=== PATIENT | female | born 1995 | race African-American/Black ===

== ENCOUNTER 2017-04-19 03:12 | Emergency (ER) | payer MEDICAID, OTHER ==
[2017-04-19] MEDS ORDERED: NORMAL SALINE 500 ML IV ONE (03:19)
[2017-04-19] MEDS ORDERED: KETOROLAC TROMETHAMINE INJ/PF 30 MG/1 ML SDV IV ONE (03:48)
[2017-04-19] MEDS ORDERED: NORMAL SALINE 1000 ML 1,000 ML IV ONE (03:48)
[2017-04-19] MEDS ORDERED: ONDANSETRON HCL INJ/PF 4 MG/2 ML SDV IV ONE (03:49)
[2017-04-19 04:38] LABS: ABSOLUTE EOSINOPHILS # (AUTO) 0.2 10^3/uL (0.0-0.6); ABSOLUTE MONOCYTES (AUTO) 0.5 10^3/uL (0.1-1.4); ABSOLUTE NEUT (AUTO) 3.2 10^3/uL (1.7-8.2); BASOPHILS % (AUTO) 0.6 % (0-2); EOSINOPHILS % (AUTO) 2.6 % (0-6); HEMATOCRIT 42.7 % (36.0-47.0); HEMOGLOBIN 15.4 g/dL (12.0-15.5); HGB HCT DIFFERENCE 3.5; LYMPHOCYTES % (AUTO) 34.1 % (13-45); MEAN CORPUSCULAR HEMOGLOBIN 32.8 pg (27.0-33.4); MEAN CORPUSCULAR HGB CONC 36.1 g/dL (32.0-36.0); MEAN CORPUSCULAR VOLUME 91 fl (80-97); MONOCYTES % (AUTO) 9.2 % (3-13); RED CELL DISTRIBUTION WIDTH 12.9 % (11.5-14.0); SEGMENTED NEUTROPHILS % (AUTO) 53.5 % (42-78)
[2017-04-19 04:53] LABS: ALANINE AMINOTRANSFERASE 29 U/L (9-52); ALBUMIN 4.3 g/dL (3.5-5.0); ALKALINE PHOSPHATASE 51 U/L (38-126); ANION GAP 10 (5-19); ASPARTATE AMINO TRANSFERASE 22 U/L (14-36); BILIRUBIN,DIRECT 0.3 mg/dL (0.0-0.4); BILIRUBIN,TOTAL 0.7 mg/dL (0.2-1.3); BLOOD UREA NITROGEN 11 mg/dL (7-20); CALCIUM 9.7 mg/dL (8.4-10.2); CARBON DIOXIDE 26 mmol/L (22-30); CHLORIDE 107 mmol/L (98-107); GLUCOSE 96 mg/dL (75-110); LIPASE 71.5 U/L (23-300); SODIUM 142.9 mmol/L (137-145); TOTAL PROTEIN 7.2 g/dL (6.3-8.2)
[2017-04-19 05:14] LABS: APPEARANCE,URINE CLOUDY; BILIRUBIN,URINE NEGATIVE (NEGATIVE); GLUCOSE, URINE NEGATIVE (NEGATIVE); KETONES,URINE NEGATIVE (NEGATIVE); LEUKOCYTE ESTERASE,URINE MODERATE (NEGATIVE); NITRITE,URINE NEGATIVE (NEGATIVE); PROTEIN,URINE NEGATIVE (NEGATIVE); URINE SPECIFIC GRAVITY 1.027
--- NOTE | 2017-04-19 05:18 | ER Document Report ---
ED General - General TRAVEL OUTSIDE OF THE [place]. IN LAST 30 DAYS: No <DK QUIROGA - Last Filed: 04/19/17 06:10> <PADMINI HARMON - Last Filed: 04/19/17 07:44> - General Chief Complaint: Abdominal Pain Stated Complaint: ABDOMINAL PAIN Time Seen by Provider: 04/19/17 03:24 Notes: Patient is a 22-year-old female presents with complaint of pain that starts in her left back and radiates around her flank and into the left inguinal area. She says and comes in waves. She says she took some Motrin at home which temporarily relieved the pain but then it came back. Some nausea that also comes in waves with the pain. No actual vomiting. No diarrhea. No blood in her stool. No fevers. She has never had pain like this before. She does have an Implanon for control. No abnormal vaginal discharge or bleeding. No dysuria. (DK QUIROGA) - Related Data Allergies/Adverse Reactions: No Known Allergies Allergy (Verified 05/04/16 16:09) Past Medical History - Social History Smoking Status: Never Smoker Chew tobacco use (# tins/day): No Frequency of alcohol use: Occasional Drug Abuse: None Family History: None Patient has suicidal ideation: No Patient has homicidal ideation: No - Past Medical History Cardiac Medical History: Reports: Hx Hypertension Renal/ Medical History: Denies: Hx Peritoneal Dialysis - Immunizations Immunizations up to date: Yes Hx Diphtheria, Pertussis, Tetanus Vaccination: Yes - 2012 <DK QUIROGA - Last Filed: 04/19/17 06:10> Review of Systems <DK QUIROGA - Last Filed: 04/19/17 06:10> <PADMINI HARMON - Last Filed: 04/19/17 07:44> - Review of Systems Notes: My Normal Review Basic REVIEW OF SYSTEMS: CONSTITUTIONAL : Denies fever, chills, or sweats. Denies recent illness. RESPIRATORY: Denies cough, cold, or chest congestion. Denies shortness of breath, difficulty breathing, or wheezing. GASTROINTESTINAL: Left flank and left lower quadrant abdominal pain. Nausea. No vomiting. GENITOURINARY: Denies difficulty urinating, painful urination, burning, frequency, or blood in urine. Left flank and back pain. FEMALE GENITOURINARY: Denies vaginal bleeding, abnormal or irregular periods. MUSCULOSKELETAL: Denies neck or back pain or joint pain or swelling. SKIN: Denies rash or skin lesions. NEUROLOGICAL: Denies altered mental status or loss of consciousness. Denies headache. Denies weakness or paralysis or loss of use of either side. Denies problems with gait or speech. Denies sensory or motor loss. ALL OTHER SYSTEMS REVIEWED AND NEGATIVE. (DK QUIROGA) Physical Exam <DK QUIROGA - Last Filed: 04/19/17 06:10> <PADMINI HARMON - Last Filed: 04/19/17 07:44> - Vital signs Vitals: Temp Pulse Resp BP Pulse Ox 97.7 F 63 18 141/82 H 98 04/19/17 03:18 04/19/17 03:18 04/19/17 03:18 04/19/17 03:18 04/19/17 03:18 - Notes Notes: General Appearance: Well nourished, alert, cooperative, no acute distress, mild obvious discomfort. Vitals: reviewed, See vital signs table. Head: no swelling or tenderness to the head Eyes: PERRL, EOMI, Conjuctiva clear Mouth: No decreasd moisture Lungs: No wheezing, No rales, No rhonci, No accessory muscle use, good air exchange bilaterally. Heart: Normal rate, Regular rythm, No murmur, no rub Abdomen: Normal BS, soft, No rigidity, no pain palpation of left abdomen or flank. Back: Negative Kota's sign. Extremities: strength 5/5 in all extremities, good pulses in all extremities, no swelling or tenderness in the extremities, no edema. Skin: warm, dry, appropriate color, no rash Neuro: speech clear, oriented x 3, normal affect, responds appropriately to questions. (DK QUIROGA) Course - Laboratory Result Diagrams: 04/19/17 04:15 04/19/17 04:15 <DK QUIROGA - Last Filed: 04/19/17 06:10> - Laboratory Result Diagrams: 04/19/17 04:15 04/19/17 04:15 <PADMINI HARMON - Last Filed: 04/19/17 07:44> - Re-evaluation Re-evalutation: 04/19/17 05:17 Patient's pain is very consistent with that of a kidney stone based on history and exam. It is not reproducible palpation and she says it comes in waves and radiates from her flank into her left inguinal area. I will obtain a CT scan to look for evidence of a kidney stone. (DK QUIROGA) 04/19/17 07:43 Ultrasound showing a critical pathology. They relate to the patient that she had thickened endometrium more likely due to menstrual cycle and also small cyst and bilateral ovaries. Patient states understanding. We will continue with discharge home abdomen soft nontender patient was given prescriptions for Keflex and Toradol. 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 ( PADMINI HARMON) - Vital Signs Vital signs: Temp Pulse Resp BP Pulse Ox 97.7 F 63 18 141/82 H 98 04/19/17 03:18 04/19/17 03:18 04/19/17 03:18 04/19/17 03:18 04/19/17 03:18 - Laboratory Laboratory results interpreted by me: 04/19/17 04/19/17 03:23 04:15 MCHC 36.1 H Urine Urobilinogen 2.0 H Ur Leukocyte Esterase MODERATE H Discharge <DK QUIROGA - Last Filed: 04/19/17 06:10> <PADMINI HARMON - Last Filed: 04/19/17 07:44> - Discharge Clinical Impression: Abdominal pain Qualifiers: Abdominal location: left lower quadrant Qualified Code(s): R10.32 - Left lower quadrant pain Condition: Good Disposition: HOME, SELF-CARE Additional Instructions: Please take the antibiotics as prescribed. Your urine showed mild signs of a UTI and that is why we will be placing you on a three day course of antibiotics. Your CT scan was negative for kidney stone. Your ultrasound was negative for ovarian torsion. Please return to the ER immediately if you develop fevers, vomiting, abnormal vaginal discharge, or if you feel that your symptoms are worsening. Please follow up wiht your doctor or the ER in 2 days for reevaluation if you are still having pain. Prescriptions: Ketorolac Tromethamine [Toradol 10 mg Tablet] 10 mg PO Q8HP PRN #15 tablet PRN Reason: Cephalexin Monohydrate [Keflex 500 mg Capsule] 500 mg PO BID #14 capsule Forms: Return to Work
--- NOTE | 2017-04-19 05:58 | RADIOLOGY REPORT (SQ) ---
EXAM DESCRIPTION: CT LTD RENAL STONE PROTOCOL ON COMPLETED DATE/TIME: 04/19/2017 5:42 am REASON FOR STUDY: left flank pain COMPARISON: CT abdomen and pelvis 03/02/2014 TECHNIQUE: CT scan of the abdomen and pelvis performed without intravenous or oral contrast. Images reviewed with lung, soft tissue, and bone windows. Reconstructed coronal and sagittal MPR images revi ewed. All images stored on PACS. All CT scanners at this facility use dose modulation, iterative reconstruction, and/or weight based d osing when appropriate to reduce radiation dose to as low as reasonably achievable (ALARA). [facility]: Dose Right [facility]: CareDose [facility]: Dose Right [facility]: Teradose 4D [facility]: [employer] RADIATION DOSE: Up-to-date CT equipment and radiation dose reduction techniques were employed. CTDIv ol: 6.4 mGy. DLP: 333 mGy-cm.mGy. LIMITATIONS: None. FINDINGS: LOWER CHEST: No consolidation or pleural effusion. NON-CONTRASTED LIVER, SPLEEN, ADRENALS: Evaluation limited by lack of IV contrast. No identified sign ificant masses. PANCREAS: No peripancreatic inflammatory changes. GALLBLADDER: The gallbladder is present. There is pericholecystic fluid. RIGHT KIDNEY AND URETER: Assessment for masses limited by lack of IV contrast. No significant calci fications. No hydronephrosis or hydroureter. LEFT KIDNEY AND URETER: Assessment for masses limited by lack of IV contrast. No significant calcif ications. No hydronephrosis or hydroureter. AORTA AND RETROPERITONEUM: No abdominal aortic aneurysm. No retroperitoneal masses or adenopathy. BOWEL AND PERITONEAL CAVITY: No dilated bowel loops or inflammatory changes. No free fluid. APPENDIX: Not visualized. PELVIS, BLADDER, AND ABDOMINAL WALL:The urinary bladder is partially distended. An intrauterine alison ce is seen at the retroverted uterus. No free fluid. BONES: No acute findings. IMPRESSION: No urinary tract calculi or hydronephrosis. Pericholecystic fluid. Please correlate for acute cholecystitis. COMMENT: Quality ID # [id number]: Final reports with documentation of one or more dose reduction techniques (e.g., Automated exposure control, adjustment of the mA and/or kV according to patient size, use of iterative reconstruction technique) TECHNICAL DOCUMENTATION: JOB ID: [id number] [place]-[id number] [employer]- All Rights Reserved
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
[2017-04-19 08:07] VITALS: BP 135/66
== END 2017-04-19 08:05 | disposition home or self-care (01) ==
LOC: ER 03:12
DX: R10.32 Left lower quadrant pain (principal); R11.0 Nausea; Z97.5 Presence of (intrauterine) contraceptive device; I10 Essential (primary) hypertension
CPT/HCPCS: 99284; 96361; 96374; 96375; 36415; 83690; 85025; 81025; 80053; 81001; 76830; 93976; 76380; J1885; J2405; J7030

== ENCOUNTER 2020-05-05 14:03 | Emergency (ER) | payer OTHER ==
[2020-05-05] MEDS ORDERED: HYDROCODONE/ACETAMINOPHEN 5-325 MG TABLET PO ONE (14:33)
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
[2020-05-05 16:50] VITALS: BP 131/78
== END 2020-05-05 16:49 | disposition home or self-care (01) ==
LOC: ER 14:03
DX: S63.502A Unspecified sprain of left wrist, initial encounter (principal); S46.811A Strain of other muscles, fascia and tendons at shoulder and upper arm level, right arm, initial encounter; V86.99XA Unspecified occupant of other special all-terrain or other off-road motor vehicle injured in nontraffic accident, initial encounter
CPT/HCPCS: 72125; 99284